=== PATIENT | male | born 1950 ===

== ENCOUNTER 2019-04-11 11:50 | Outpatient (CLI) | payer OTHER ==
[~2019-04-11 11:50] MED LIST: ACTOS15 MG; ARNUITY ELLIP100 MCG; ASA81 MG; ATORVASTATIN CA20 MG; CIALIS5 MG; DONEPEZIL HCL O10 MG; TRADJENTA5 MG; ZESTRIL5 MG
== END 2019-04-11 15:00 | disposition home or self-care (01) ==
LOC: MRI 11:50
DX: M54.2 Cervicalgia (principal)
CPT/HCPCS: 72141

== ENCOUNTER 2024-12-13 17:43 | Inpatient (IN) | payer OTHER ==
[~2024-12-13] VITALS: Ht 182.9 cm; Wt 74.8 kg
--- NOTE | 2024-12-13 18:35 | NUR ---
SE RECIBE PTE PROVIENTE DE HOME EN AMBULANCIA EN COMPANIA DE FAMILIARES QUIENES REFIEREN PTE CON HYPERGLICEMIA.AL MOMENTO NO PRESENTA DIFICULTAD RESP NI DOLOR.SE ROBERT S/V Y DXT.SE LE ADMINISTRO METFORMIN EN EL HOGAR,FAMILIARES Y PARAMEDICOS DESCONOCEN CUANTOS MG.
[2024-12-13] MEDS ORDERED: 0.9 % SODIUM CHLORIDE 1,000 ML IV STA (21:22)
[2024-12-13] MEDS ORDERED: INSULIN REGULAR, HUMAN 1,000 UNIT/10 ML UNITS IV STA (21:24)
[2024-12-13] MEDS ORDERED: INSULIN REGULAR, HUMAN 1,000 UNIT/10 ML UNITS SUBCUTANEO STA (21:24)
--- NOTE | 2024-12-13 22:00 | NUR ---
MR. BRADLEY EDUCA A PTE SOBRE [place] MEDICO, SE ROBERT MUESTRAS DE LABORATORIO UTILIZANDO MEDIDAS ASEPTICAS. SE COLOCA H/L MARY DE EDEMA. SE ADMINISTRAN MEDICAMENTOS SALVADOR ORDEN MEDICA. SE NOTIFICAN ESTUDIOS DE CT Y RX PENDIENTES. SE TRASLADA A PTE A UNIDAD DE CRITICO SALVADOR ORDEN MEDICA. SE CONECTA A PTE A MONITOR CARDIACO CON OXIMETRIA CONTINU, SE ENTREGA A PTE A RN DE AREA.
[2024-12-13 22:05] LABS: HEMATOCRIT 43.7 % (39.0-48.0); HEMOGLOBIN 14.4 g/dL (13-16.00); MEAN CELL VOLUME 100.3 fL (80.0-100.00); MEAN CORPUSCULAR HEMOGLOBIN 33.2 pg (27.00-32.0); MEAN CORPUSCULAR HGB CONC 33.1 g/dl (32.0-36.0); PLATELET COUNT 236 K/uL (150-450); RED BLOOD COUNT 4.35 M/uL (4.00-6.00)
[2024-12-13 22:24] LABS: ALBUMIN 3.6 gm/dL (3.4-5.0); BILIRUBIN TOTAL 1.03 mg/dL (0.3-1.2); CALCIUM 10.2 mg/dL (8.5-10.1); CREATININE SERUM 2.3 mg/dL (0.70-1.30); GFR 27.78; GLOBULINA 4.2 G/DL (2.4-3.5); POTASSIUM 4.42 mEq/L (3.5-5.1); TOTAL PROTEIN 7.8 gm/dL (6.4-8.2)
[2024-12-13 22:35] LABS: ABG PH 7.404 (7.35-7.45); ABG pCO2 41.2 mmHg (35-45); BASE EXCESS 0.4 mmol/l; BICARBONATE 25.2 mmol/l (23-25); SaO2 96.6 %; Tco2 26.45 mmol/l; allen test SATISFACTORY; o2 21 %; puncture site RADIAL RIGHT
[2024-12-13 22:36] LABS: ABG PO2 86.7 mmHg (80-100)
[2024-12-13 22:46] LABS: URINE APPEARANCE Clear; URINE BILIRRUBIN Negative (NEGATIVE); URINE BLOOD Large; URINE COLOR Yellow; URINE KETONE 15 (NEGATIVE); URINE LEUKOCYTE Negative; URINE NITRATE Negative; URINE PROTEIN 30 (NEGATIVE); URINE UROBILINOGEN 0.2 E.U./dl
[2024-12-13 22:50] LABS: URINE BACTERIA 149.3 uL (0.0-1933); URINE EPITHELIAL CELLS 5.6 uL (0.0-38.8); URINE RBC 254.5 uL (0.0-20.8); URINE WBC 27.8 uL (0.0-23.2)
[2024-12-13 22:51] LABS: URINE CAST 0.58 uL (0.0-1.40); URINE GLUCOSE >=1000 MG/DL (NEGATIVE)
[2024-12-14] VITALS (11 sets, daily range): BP systolic 133–167; BP diastolic 65–82; O2SAT 96–100
[2024-12-14] MEDS ORDERED: CIPROFLOXACIN IN 5 % DEXTROSE 200 ML IV SCH (00:08)
[2024-12-14] MEDS ORDERED: SODIUM CHLORIDE 0.45 % 1,000 ML IV SCH (00:15)
[2024-12-14] MEDS ORDERED: INSULIN REGULAR, HUMAN 100 UNITS in 0.9 % SODIUM CHLORIDE 100 ML IV SCH (00:15)
[2024-12-14] MEDS ORDERED: ONDANSETRON HCL 4 MG in 0.9 % SODIUM CHLORIDE 50 ML IV PRN (00:15)
[2024-12-14] MEDS ORDERED: POTASSIUM CHLORIDE/NACL 0.9% 1,000 ML IV NR (00:15)
[2024-12-14 02:34] LABS: INR 1.07; PARTIAL THROMBOPLASTIN TIME 20.9 SECONDS (22.0-34.0); PROTHROMBIN TIME 11.6 SECONDS (9.0-11.5)
[2024-12-14 02:37] LABS: PHOSPHOROUS 2.2 mg/dL (2.5-4.9)
[2024-12-14 02:39] LABS: C-REACTIVE PROTEIN < 0.29 MG/DL (0.00-0.29)
[2024-12-14 05:56] LABS: CALCIUM 9.4 mg/dL (8.5-10.1); CREATININE SERUM 2.01 mg/dL (0.70-1.30); GFR 32.46; POTASSIUM 3.63 mEq/L (3.5-5.1)
[2024-12-14] MEDS ORDERED: FAMOTIDINE/PF 20 MG in 0.9 % SODIUM CHLORIDE 8 ML IV PUSH SCH (09:00)
[2024-12-14] MEDS ORDERED: CHLORHEXIDINE GLUCONATE 120 ML BOTTLE TOP ONE (09:53)
[2024-12-14] MEDS ORDERED: INSULIN LISPRO 1,000 UNIT/10 ML UNITS SUBCUTANEO PRN (11:00)
[2024-12-14] MEDS ORDERED: DEXTROSE 50 % IN WATER 0.5 G/ML DISP.SYRIN IV PRN (11:00)
[2024-12-14 13:51] LABS: CREATININE SERUM 1.83 mg/dL (0.70-1.30); GFR 36.17
[2024-12-14 13:53] LABS: POTASSIUM 5.29 mEq/L (3.5-5.1)
[2024-12-14] MEDS ORDERED: DONEPEZIL HCL 10 MG TABLET PO SCH (17:00)
[2024-12-15 01:12] VITALS: BP 103/58
[2024-12-15 06:32] LABS: ALBUMIN 3.2 gm/dL (3.4-5.0); BILIRUBIN TOTAL 2.02 mg/dL (0.3-1.2); CALCIUM 9.1 mg/dL (8.5-10.1); CREATININE SERUM 1.64 mg/dL (0.70-1.30); GFR 41.05; GLOBULINA 3.4 G/DL (2.4-3.5); POTASSIUM 4.58 mEq/L (3.5-5.1); TOTAL PROTEIN 6.6 gm/dL (6.4-8.2)
[2024-12-15 09:51] VITALS: BP 145/85; O2SAT 97
[2024-12-15 18:02] LABS: ALBUMIN 3.7 gm/dL (3.4-5.0); BILIRUBIN TOTAL 2.22 mg/dL (0.3-1.2); BILIRUBIN,CONJUGATED 0.36 mg/dL (0.0-0.2); BILIRUBIN,UNCONJUGATED 1.86 mg/dL (0.0-0.6); TOTAL PROTEIN 7.4 gm/dL (6.4-8.2)
[2024-12-15 18:18] VITALS: BP 141/74
[2024-12-16 02:47] VITALS: BP 110/71; O2SAT 95
[2024-12-16 08:16] LABS: HEMATOCRIT 39.9 % (39.0-48.0); HEMOGLOBIN 13.4 g/dL (13-16.00); MEAN CELL VOLUME 99.9 fL (80.0-100.00); MEAN CORPUSCULAR HEMOGLOBIN 33.5 pg (27.00-32.0); MEAN CORPUSCULAR HGB CONC 33.5 g/dl (32.0-36.0); PLATELET COUNT 187 K/uL (150-450); RED BLOOD COUNT 3.99 M/uL (4.00-6.00); RED CELL DISTRIBUTION WIDTH 13.4 % (11.5-14.5)
[2024-12-16 08:47] LABS: ALBUMIN 3.3 gm/dL (3.4-5.0); BILIRUBIN TOTAL 2.11 mg/dL (0.3-1.2); CALCIUM 9.2 mg/dL (8.5-10.1); CREATININE SERUM 1.54 mg/dL (0.70-1.30); GFR 44.14; GLOBULINA 3.1 G/DL (2.4-3.5); POTASSIUM 4.88 mEq/L (3.5-5.1); TOTAL PROTEIN 6.4 gm/dL (6.4-8.2)
[2024-12-16 09:06] VITALS: BP 160/78; O2SAT 96
[2024-12-16 18:08] VITALS: BP 170/75
[2024-12-17 02:00] VITALS: BP 148/80
[2024-12-17] MEDS ORDERED: INSULIN GLARGINE,HUM.REC.ANLOG 1,000 UNITS/10 ML UNITS SUBCUTANEO SCH (09:00)
[2024-12-17 09:10] VITALS: BP 110/72; O2SAT 95
[2024-12-17 09:11] VITALS: BP 138/70; O2SAT 95
[2024-12-17 18:58] VITALS: BP 163/72
[2024-12-17 22:24] LABS: CALCIUM 8.9 mg/dL (8.5-10.1); CREATININE SERUM 1.3 mg/dL (0.70-1.30); GFR 53.67; POTASSIUM 4.51 mEq/L (3.5-5.1)
[2024-12-18 01:43] VITALS: BP 154/75
[2024-12-18 07:05] LABS: HEMATOCRIT 38.1 % (39.0-48.0); HEMOGLOBIN 13.1 g/dL (13-16.00); MEAN CELL VOLUME 97.1 fL (80.0-100.00); MEAN CORPUSCULAR HEMOGLOBIN 33.4 pg (27.00-32.0); MEAN CORPUSCULAR HGB CONC 34.5 g/dl (32.0-36.0); PLATELET COUNT 168 K/uL (150-450); RED BLOOD COUNT 3.93 M/uL (4.00-6.00); RED CELL DISTRIBUTION WIDTH 13.6 % (11.5-14.5)
[2024-12-18 08:10] LABS: BILIRUBIN TOTAL 2.11 mg/dL (0.3-1.2); CREATININE SERUM 1.24 mg/dL (0.70-1.30); GFR 56.68; GLOBULINA 3.1 G/DL (2.4-3.5); POTASSIUM 3.65 mEq/L (3.5-5.1); TOTAL PROTEIN 6.1 gm/dL (6.4-8.2)
[2024-12-18 09:34] VITALS: BP 140/65
[2024-12-18 19:18] VITALS: BP 137/90
[2024-12-19 02:41] VITALS: BP 111/69; O2SAT 97
[2024-12-19 08:58] VITALS: BP 154/76; O2SAT 96
== END 2024-12-19 14:40 | disposition home or self-care (01) | DRG 689 ==
LOC: ER 17:43 → ICU-2 12-14 00:16 → MEDJ 12-14 00:16
PROVIDERS: General Practice; Internal Medicine; ADMIT Internal Medicine; ATTEND Internal Medicine
PROC: BW21ZZZ Computerized Tomography (CT Scan) of Abdomen and Pelvis (ICD-10-PCS; principal; 2024-12-14)
DX: N39.0 Urinary tract infection, site not specified (principal); E11.00 Type 2 diabetes mellitus with hyperosmolarity without nonketotic hyperglycemic-hyperosmolar coma (NKHHC); N17.9 Acute kidney failure, unspecified; E87.0 Hyperosmolality and hypernatremia; E86.0 Dehydration; G30.9 Alzheimer's disease, unspecified; F02.80 Dementia in other diseases classified elsewhere, unspecified severity, without behavioral disturbance, psychotic disturbance, mood disturbance, and anxiety; E66.9 Obesity, unspecified; Z79.4 Long term (current) use of insulin; I10 Essential (primary) hypertension; I12.9 Hypertensive chronic kidney disease with stage 1 through stage 4 chronic kidney disease, or unspecified chronic kidney disease; N18.9 Chronic kidney disease, unspecified